=== PATIENT | male | born 1980 | race Caucasian/White ===

== ENCOUNTER 2018-05-22 08:36 | Outpatient (CLI) | payer MEDICARE, MEDICAID ==
[~2018-05-22 08:36] MED LIST: BUDE10.24 IH; LISI40TA4 PO; SAXA1TBM3 PO; SUMA100T PO
== END 2018-05-22 23:59 | disposition home or self-care (01) ==
LOC: RAD 08:36
PROVIDERS: ATTEND Family Medicine
DX: Q63.1 Lobulated, fused and horseshoe kidney (principal); R19.7 Diarrhea, unspecified; I10 Essential (primary) hypertension; J45.909 Unspecified asthma, uncomplicated; E11.9 Type 2 diabetes mellitus without complications; Z79.899 Other long term (current) drug therapy
CPT/HCPCS: 76700